=== PATIENT | male | born 1945 | race American Indian/Alaskan Native ===

== ENCOUNTER 2021-02-28 14:16 | Observation (INO) | payer MEDICARE ==
[2021-02-28 16:01] LABS: Basophils % (Auto) 0.5 % (0.0-1.8); Hematocrit 49.1 % (35.5-45.6); Hemoglobin 16.3 gm/dl (11.8-15.2); Lymphocytes # (Auto) 1.1 K/mm3 (1.2-5.4); Lymphocytes % (Auto) 18.6 % (13.4-35.0); Mean Corpuscular HGB Conc 33 % (32-34); Mean Corpuscular Volume 95 fl (84-94); Monocytes # (Auto) 0.7 K/mm3 (0.0-0.8); Monocytes % (Auto) 12.2 % (0.0-7.3); Platelet Count 179 K/mm3 (140-440); Red Blood Count 5.17 M/mm3 (3.65-5.03); Red Cell Distribution Width 12.2 % (13.2-15.2)
[2021-02-28 16:18] LABS: Alanine Aminotransferase 40 units/L (7-56); Albumin 3.6 g/dL (3.9-5); BUN/Creatinine Ratio 19; Blood Urea Nitrogen 32 mg/dL (9-20); Calcium 8.9 mg/dL (8.4-10.2); Hemolysis Index 13
[2021-02-28 16:28] LABS: INR 0.93 (0.87-1.13)
[2021-02-28 16:29] LABS: Partial Thromboplastin Time 27.1 Sec. (24.2-36.6)
[2021-02-28 16:31] LABS: Bilirubin,Urine NEG (Negative); Blood,Urine MOD (Negative); Color,Urine Yellow (Yellow); Hyaline Casts,Urine 2 /LPF; Urobilinogen,Urine < 2.0 mg/dL (<2.0)
[2021-02-28 16:34] LABS: Protein,Urine >500 mg/dL (Negative)
[2021-02-28] MEDS ORDERED: SODIUM CHLORIDE 0.9% 1000 ML 1,000 ML IV ONE ×2 (16:52→21:25)
--- NOTE | 2021-02-28 17:04 | Emergency Department Report ---
ED General Adult HPI - General Chief complaint: GI Bleed Stated complaint: DIZZINESS Source: patient Mode of arrival: Ambulatory Limitations: No Limitations - History of Present Illness Initial comments: Patient is a 76-year-old male with past medical history notable for coronary artery disease with stent placement, elevated cholesterol levels, hypertension, diabetes. He is here with complaint of several days of body aches poor p.o. intake watery diarrhea. On today he noticed bright red blood in his diarrhea and stools around 10 AM. He states he has felt dizzy and weak he notes that he has not eaten in or taken insulin given his symptoms. He denies any fevers chills he denies any sick contacts with similar symptoms he denies any chest pain or shortness of breath. He states that he has not been vaccinated for COVID-19. Severity scale (0 -10): 2 - Related Data Home Medications Medication Instructions Recorded Confirmed Last Taken Aspirin [Baby Aspirin] 81 mg PO DAILY 11/27/12 11/27/12 11/25/12 Hydrochlorothiazide 25 mg PO DAILY 11/27/12 11/27/12 11/25/12 Nitroglycerin 0.4 mg SL PRN 11/27/12 11/27/12 11/25/12 Omeprazole 20 mg PO DAILY 11/27/12 11/27/12 11/25/12 Simvastatin 40 mg PO DAILY 11/27/12 11/27/12 11/25/12 glipiZIDE [Glipizide] 5 mg PO DAILY 11/27/12 11/27/12 11/25/12 trandolapriL [Trandolapril] 2 mg PO DAILY 11/27/12 11/27/12 11/25/12 Allergies Allergy/AdvReac Type Severity Reaction Status Date / Time No Known Allergies Allergy Unverified 11/27/12 07:13 ED Review of Systems ROS: Stated complaint: DIZZINESS Other details as noted in HPI Constitutional: denies: chills, fever Eyes: denies: eye pain ENT: denies: throat pain Respiratory: denies: cough, shortness of breath Cardiovascular: denies: chest pain Endocrine: no symptoms reported Gastrointestinal: hematochezia. denies: abdominal pain, nausea, vomiting, nikhil rrhea Genitourinary: denies: urgency, dysuria Musculoskeletal: denies: back pain Skin: denies: rash Neurological: weakness. denies: headache Psychiatric: denies: anxiety, depression Hematological/Lymphatic: denies: easy bleeding ED Past Medical Hx - Past Medical History Hx Hypertension: Yes (1987) Hx Diabetes: Yes Hx Arthritis: Yes - Surgical History Hx Coronary Stent: Yes (11/2008) - Social History Smoking Status: Former Smoker - Medications Home Medications: Home Medications Medication Instructions Recorded Confirmed Last Taken Type Aspirin [Baby Aspirin] 81 mg PO DAILY 11/27/12 11/27/12 11/25/12 History Hydrochlorothiazide 25 mg PO DAILY 11/27/12 11/27/12 11/25/12 History Nitroglycerin 0.4 mg SL PRN 11/27/12 11/27/12 11/25/12 History Omeprazole 20 mg PO DAILY 11/27/12 11/27/12 11/25/12 History Simvastatin 40 mg PO DAILY 11/27/12 11/27/12 11/25/12 History glipiZIDE [Glipizide] 5 mg PO DAILY 11/27/12 11/27/12 11/25/12 History trandolapriL [Trandolapril] 2 mg PO DAILY 11/27/12 11/27/12 11/25/12 History ED Physical Exam - General Limitations: No Limitations General appearance: alert, in no apparent distress - Head Head exam: Present: atraumatic, normocephalic - Eye Eye exam: Present: normal appearance - ENT ENT exam: Present: mucous membranes moist - Neck Neck exam: Present: normal inspection - Respiratory Respiratory exam: Present: normal lung sounds bilaterally. Absent: respiratory distress - Cardiovascular Cardiovascular Exam: Present: regular rate, normal rhythm. Absent: systolic murmur, diastolic murmur, rubs, gallop - GI/Abdominal GI/Abdominal exam: Present: soft, normal bowel sounds - Rectal Rectal exam: Present: normal inspection, normal rectal tone, heme (+) stool - Extremities Exam Extremities exam: Present: normal inspection - Back Exam Back exam: Present: normal inspection - Neurological Exam Neurological exam: Present: alert, oriented X3 - Psychiatric Psychiatric exam: Present: normal affect, normal mood - Skin Skin exam: Present: warm, dry, intact, normal color. Absent: rash ED Course Vital Signs 02/28/21 02/28/21 14:45 18:47 Temperature 99.9 F H Pulse Rate 105 H 84 Respiratory 20 21 Rate Blood Pressure 172/94 168/79 [Right] O2 Sat by Pulse 93 94 Oximetry - Reevaluation(s) Reevaluation #1: 02/28/21 17:11 Initial labs notable for mild VANESSA. IV fluids have been ordered for rehydration but pending rest of work-up patient may need admission. 02/28/21 21:26 Additional fluids are ordered. Subcu insulin is also ordered as patient's blood sugar is only gone down to 360. Have also ordered Protonix. I have also spoken with the hospitalist for admission and they will come evaluate the patient. ED Medical Decision Making - Lab Data Result diagrams: 02/28/21 15:22 02/28/21 15:22 - EKG Data -: EKG Interpreted by Me EKG shows normal: sinus rhythm Rate: normal No standard instances Voltage: C/W LVH T wave inversions noted in: I, II, aVL, v2, v4, v5, v6 - Medical Decision Making Patient is a 76-year-old male presents emergency department complaint of dizziness diarrhea and generalized weakness as well as blood in stools on today. On exam patient was initially mildly tachycardic however his vital signs have normalized since I saw him. Labs are notable for hyperglycemia, VANESSA, pseudohyponatremia. Plan to give IV fluids. Differential includes viral illness, COVID-19, considered but less likely would be a pneumonia. X-ray of the abdomen and chest have also been ordered. Critical care attestation.: If time is entered above; I have spent that time in minutes in the direct care of this critically ill patient, excluding procedure time. ED Disposition Clinical Impression: VANESSA (acute kidney injury), Dehydration, Diarrhea Disposition: ADMITTED INPATIENT Is pt being admited?: Yes Does the pt Need Aspirin: No Condition: Stable Referrals: PRIMARY CARE, [Primary Care Provider] - 3-5 Days Forms: Accompanied Note
--- NOTE | 2021-02-28 18:29 | XRay Report ---
ABDOMEN 3 VIEW(S) INDICATION / CLINICAL INFORMATION: Blood in the stool. Mild hypoxia. COMPARISON: None available. FINDINGS: TUBES / LINES: None. BOWEL GAS PATTERN: There is no evidence of bowel obstruction or mass effect. FREE AIR / EXTRALUMINAL GAS: None seen. ADDITIONAL FINDINGS: No significant additional findings. CHEST: The heart size and pulmonary vasculature are normal. The lungs are clear. IMPRESSION: No acute abnormality is identified. Signer Name: Yevgeniy Edmond MD Signed: 02/28/2021 6:25 PM Workstation Name: [id number]
[2021-02-28] MEDS ORDERED: INSULIN REGULAR, HUMAN 100 UNITS/1 ML SUB-Q ONE (21:25)
[2021-02-28] MEDS ORDERED: PANTOPRAZOLE 40 MG INJ IV ONE (21:25)
[2021-02-28] MEDS ORDERED: ALBUTEROL 2.5 MG/3 ML NEBU IH PRN (22:25)
[2021-02-28] MEDS ORDERED: ACETAMINOPHEN 325 MG TAB PO PRN (22:25)
[2021-02-28] MEDS ORDERED: ONDANSETRON 4 MG/2 ML INJ IV PRN (22:25)
[2021-02-28] MEDS ORDERED: HYDROmorphone 1 MG/1 ML INJ IV PRN (22:25)
[2021-02-28] MEDS ORDERED: MORPHINE 2 MG/1 ML INJ IV PRN (22:25)
[2021-02-28] MEDS ORDERED: DEXTROSE 50% IN WATER (25GM) 50 ML SYRINGE IV PRN (22:27)
[2021-02-28] MEDS ORDERED: NITROGLYCERIN SL SCH (22:30)
[2021-02-28] MEDS ORDERED: SODIUM CHLORIDE 0.9% 1000 ML 1,000 ML IV SCH (22:30)
--- NOTE | 2021-02-28 22:33 | History and Physical Report ---
History of Present Illness Date of examination: 02/28/21 Date of admission: 02/28/21 21:27 Chief complaint: GI bleeding History of present illness: 76-year-old male with past medical history notable for coronary artery disease with stent placement, elevated cholesterol levels, hypertension, diabetes. He is here with complaint of several days of body aches poor p.o. intake watery diarrhea. On today he noticed bright red blood in his diarrhea and stools around 10 AM. He states he has felt dizzy and weak he notes that he has not eaten in or taken insulin given his symptoms. He denies any fevers chills he denies any sick contacts with similar symptoms he denies any chest pain or shortness of breath. He states that he has not been vaccinated for COVID-19. In the emergency room patient is found to have a hemoglobin of 16.3 and hematocrit 49.1 also patient BUN is 32 creatinine 1.7 and glucose 364 so going to admit the patient we will put the patient on IV fluid, Protonix and consult GI for evaluation Past History Past Medical History: arthritis, diabetes, hypertension Medications and Allergies Allergies Allergy/AdvReac Type Severity Reaction Status Date / Time No Known Allergies Allergy Unverified 11/27/12 07:13 Home Medications Medication Instructions Recorded Confirmed Last Taken Type Aspirin [Baby Aspirin] 81 mg PO DAILY 11/27/12 11/27/12 11/25/12 History Hydrochlorothiazide 25 mg PO DAILY 11/27/12 11/27/12 11/25/12 History Nitroglycerin 0.4 mg SL PRN 11/27/12 11/27/12 11/25/12 History Omeprazole 20 mg PO DAILY 11/27/12 11/27/12 11/25/12 History Simvastatin 40 mg PO DAILY 11/27/12 11/27/12 11/25/12 History glipiZIDE [Glipizide] 5 mg PO DAILY 11/27/12 11/27/12 11/25/12 History trandolapriL [Trandolapril] 2 mg PO DAILY 11/27/12 11/27/12 11/25/12 History Active Meds: Active Medications Sodium Chloride (Nacl 0.9% 1000 Ml) 1,000 mls @ 125 mls/hr IV ONCE ONE Stop: 03/01/21 05:24 Last Admin: 02/28/21 22:05 Dose: 125 mls/hr Documented by: Review of Systems All systems: negative Constitutional: weakness, other (Dizziness) Gastrointestinal: hematochezia Exam - Constitutional Vitals: Temp Pulse Resp BP Pulse Ox 99.9 F H 84 21 168/79 94 02/28/21 14:45 02/28/21 18:47 02/28/21 18:47 02/28/21 18:47 02/28/21 18:47 General appearance: Present: no acute distress, well-nourished - EENT Eyes: Present: PERRL ENT: hearing intact, clear oral mucosa - Neck Neck: Present: supple, normal ROM - Respiratory Respiratory effort: normal Respiratory: bilateral: CTA - Cardiovascular Heart Sounds: Present: S1 & S2. Absent: rub, click - Extremities Extremities: pulses symmetrical, No edema Peripheral Pulses: within normal limits - Abdominal General gastrointestinal: Present: soft, non-tender, non-distended, normal bowel sounds Male genitourinary: Present: normal - Integumentary Integumentary: Present: clear, warm, dry - Musculoskeletal Musculoskeletal: gait normal, strength equal bilaterally - Psychiatric Psychiatric: appropriate mood/affect, intact judgment & insight - Neurologic Neurologic: CNII-XII intact, moves all extremities HEART Score - HEART Score Troponin: Troponin T < 0.010 ng/mL (0.00-0.029) 02/28/21 17:21 Results - Labs CBC & Chem 7: 02/28/21 15:22 02/28/21 15:22 Labs: Laboratory Last Values WBC 5.7 K/mm3 (4.5-11.0) 02/28/21 15:22 RBC 5.17 M/mm3 (3.65-5.03) H 02/28/21 15:22 Hgb 16.3 gm/dl (11.8-15.2) H 02/28/21 15:22 Hct 49.1 % (35.5-45.6) H 02/28/21 15:22 MCV 95 fl (84-94) H 02/28/21 15:22 MCH 32 pg (28-32) 02/28/21 15:22 MCHC 33 % (32-34) 02/28/21 15:22 RDW 12.2 % (13.2-15.2) L 02/28/21 15:22 Plt Count 179 K/mm3 (140-440) 02/28/21 15:22 Lymph % (Auto) 18.6 % (13.4-35.0) 02/28/21 15:22 [place] % (Auto) 12.2 % (0.0-7.3) H 02/28/21 15:22 Eos % (Auto) 0.0 % (0.0-4.3) 02/28/21 15:22 Baso % (Auto) 0.5 % (0.0-1.8) 02/28/21 15:22 Lymph # (Auto) 1.1 K/mm3 (1.2-5.4) L 02/28/21 15:22 [place] # (Auto) 0.7 K/mm3 (0.0-0.8) 02/28/21 15:22 Eos # (Auto) 0.0 K/mm3 (0.0-0.4) 02/28/21 15: Baso # (Auto) 0.0 K/mm3 (0.0-0.1) 02/28/21 15:22 Seg Neutrophils % 68.7 % (40.0-70.0) 02/28/21 15:22 Seg Neutrophils # 3.9 K/mm3 (1.8-7.7) 02/28/21 15:22 PT 13.5 Sec. (12.2-14.9) 02/28/21 15:22 INR 0.93 (0.87-1.13) 02/28/21 15:22 APTT 27.1 Sec. (24.2-36.6) 02/28/21 15:22 Sodium 128 mmol/L (137-145) L 02/28/21 15:22 Potassium 4.1 mmol/L (3.6-5.0) 02/28/21 15:22 Chloride 87.0 mmol/L (98-107) L 02/28/21 15:22 Carbon Dioxide 28 mmol/L (22-30) 02/28/21 15:22 Anion Gap 17 mmol/L 02/28/21 15:22 BUN 32 mg/dL (9-20) H 02/28/21 15:22 Creatinine 1.7 mg/dL (0.8-1.3) H 02/28/21 15:22 Estimated GFR 48 ml/min 02/28/21 15:22 BUN/Creatinine Ratio 19 % 02/28/21 15:22 Glucose 387 mg/dL (75-100) H 02/28/21 15:22 POC Glucose 364 mg/dL (70-105) H 02/28/21 21:06 Calcium 8.9 mg/dL (8.4-10.2) 02/28/21 15:22 Total Bilirubin 0.30 mg/dL (0.1-1.2) 02/28/21 15:22 AST 31 units/L (5-40) 02/28/21 15:22 ALT 40 units/L (7-56) 02/28/21 15:22 Alkaline Phosphatase 71 units/L (35-129) 02/28/21 15:22 Troponin T < 0.010 ng/mL (0.00-0.029) 02/28/21 17:21 Total Protein 7.5 g/dL (6.3-8.2) 02/28/21 15:22 Albumin 3.6 g/dL (3.9-5) L 02/28/21 15:22 Albumin/Globulin Ratio 0.9 % 02/28/21 15:22 Urine Color Yellow (Yellow) 02/28/21 Unknown Urine Turbidity Clear (Clear) 02/28/21 Unknown Urine pH 5.0 (5.0-7.0) 02/28/21 Unknown Ur Specific [place] 1.023 (1.003-1.030) 02/28/21 Unknown Urine Protein >500 mg/dL (Negative) 02/28/21 Unknown Urine Glucose (UA) >=500 mg/dL (Negative) 02/28/21 Unknown Urine Ketones Tr mg/dL (Negative) 02/28/21 Unknown Urine Blood Mod (Negative) 02/28/21 Unknown Urine Nitrite Neg (Negative) 02/28/21 Unknown Urine Bilirubin Neg (Negative) 02/28/21 Unknown Urine Urobilinogen < 2.0 mg/dL (<2.0) 02/28/21 Unknown Ur Leukocyte Esterase Neg (Negative) 02/28/21 Unknown Urine WBC (Auto) 1.0 /HPF (0.0-6.0) 02/28/21 Unknown Urine RBC (Auto) 1.0 /HPF (0.0-6.0) 02/28/21 Unknown Hyaline Casts 2 /LPF 02/28/21 Unknown Blood Type B POSITIVE 02/28/21 15:24 Antibody Screen Negative 02/28/21 15:24 - Imaging and Cardiology Chest x-ray: report reviewed Assessment and Plan VTE prophylaxis?: Mechanical Plan of care discussed with patient/family: Yes - Patient Problems (1) GI bleeding Current Visit: Yes Status: Acute Plan to address problem: Admit the patient to med floor. NPO. Normal saline at the rate of 100 cc/h. Protonix 40 mg IV every 12 hours. Will consult GI for evaluation. Recheck CBC in the morning (2) Diabetes Current Visit: Yes Status: Acute Plan to address problem: Humalog sliding scale Accu-Chek every 6 hours with moderate dose coverage. D iabetic education (3) Hypertension Current Visit: Yes Status: Acute Plan to address problem: Stable. We will continue the home medication trend trandolapril 2 mg p.o. daily (4) VANESSA (acute kidney injury) Current Visit: Yes Status: Acute Plan to address problem: Avoid nephrotoxic drug. Renally dose medication. Normal saline at the rate of 100 cc/h. Recheck BMP in the morning (5) Dehydration Current Visit: Yes Status: Acute Plan to address problem: . Normal saline at the rate of 100 cc/h. Recheck BMP in the morning (6) DVT prophylaxis Current Visit: Yes Status: Acute Plan to address problem: SCD for DVT prophylaxis. Protonix 40 mg IV every 12 hours for GI prophylaxis. Patient is a full code
[2021-02-28] MEDS ORDERED: NITROGLYCERIN 0.4 MG TAB SUBL SL PRN (23:00)
[2021-03-01 06:17] LABS: Basophils % (Auto) 0.6 % (0.0-1.8); Hematocrit 45.7 % (35.5-45.6); Hemoglobin 15.1 gm/dl (11.8-15.2); Lymphocytes # (Auto) 1.4 K/mm3 (1.2-5.4); Lymphocytes % (Auto) 23.2 % (13.4-35.0); Mean Corpuscular HGB Conc 33 % (32-34); Mean Corpuscular Volume 96 fl (84-94); Monocytes # (Auto) 0.6 K/mm3 (0.0-0.8); Monocytes % (Auto) 10.5 % (0.0-7.3); Red Blood Count 4.78 M/mm3 (3.65-5.03); Red Cell Distribution Width 12.2 % (13.2-15.2)
[2021-03-01 06:29] LABS: BUN/Creatinine Ratio 18; Blood Urea Nitrogen 24 mg/dL (9-20); Calcium 8.5 mg/dL (8.4-10.2); Hemolysis Index 77
[2021-03-01 06:32] LABS: Platelet Count 171 K/mm3 (140-440)
[2021-03-01] MEDS: INSULIN LISPRO 100 UNIT/ML SUB-Q SCH ×4 (08:08→18:45)
[2021-03-01] MEDS ORDERED: NON-FORMULARY EACH (Simvastatin [Simvastatin] 40 MG Tablet) PO SCH (10:00)
[2021-03-01] MEDS ORDERED: TRANDOLAPRIL 2 MG PO SCH (10:00)
[2021-03-01] MEDS: hydroCHLOROthiazide 25 MG TAB PO SCH (10:07)
[2021-03-01] MEDS: LISINOPRIL 10 MG TAB PO SCH (10:07)
[2021-03-01] MEDS: PANTOPRAZOLE 40 MG INJ IV SCH ×2 (10:08→22:57)
--- NOTE | 2021-03-01 11:53 | Gastroenterology Consultation ---
History of Present Illness - Reason for Consult Consult date: 03/01/21 hematochezia Requesting physician: HARESH AKBAR - History of Present Illness The patient is a 76 yo aam with h/o cad and diabetes who presented with generalized weakness/dehydration and episode of hematochezia. Pt reports having diarrhea for a few days and had an episode of bloody stools 2-3 days ago. No further episodes since then or while in ER. He was found to have VANESSA and high glucose on admission. H/H is normal. He believes he had colonoscopy many years ago but unable to provide details on findings. Denies abd pain or weight loss. he feels hungry and requesting to eat. Past History Past Medical History: arthritis, diabetes, hypertension Medications and Allergies Allergies Allergy/AdvReac Type Severity Reaction Status Date / Time No Known Allergies Allergy Unverified 11/27/12 07:13 Home Medications Medication Instructions Recorded Confirmed Last Taken Type Aspirin [Baby Aspirin] 81 mg PO DAILY 11/27/12 11/27/12 11/25/12 History Hydrochlorothiazide 25 mg PO DAILY 11/27/12 11/27/12 11/25/12 History Nitroglycerin 0.4 mg SL PRN 11/27/12 11/27/12 11/25/12 History Omeprazole 20 mg PO DAILY 11/27/12 11/27/12 11/25/12 History Simvastatin 40 mg PO DAILY 11/27/12 11/27/12 11/25/12 History glipiZIDE [Glipizide] 5 mg PO DAILY 11/27/12 11/27/12 11/25/12 History trandolapriL [Trandolapril] 2 mg PO DAILY 11/27/12 11/27/12 11/25/12 History Active Meds: Active Medications Acetaminophen (Acetaminophen 325 Mg Tab) 650 mg PO Q4H PRN PRN Reason: Pain MILD(1-3)/Fever >100.5/PATRICK Albuterol (Albuterol 2.5 Mg/3 Ml Nebu) 2.5 mg IH Q4HRT PRN PRN Reason: Shortness Of Breath Dextrose (Dextrose 50% In Water (25gm) 50 Ml Syringe) 50 ml IV Q30MIN PRN; Protocol PRN Reason: Hypoglycemia Hydrochlorothiazide (Hydrochlorothiazide 25 Mg Tab) 25 mg PO DAILY ZACKERY Last Admin: 03/01/21 10:07 Dose: 25 mg Documented by: Hydromorphone HCl (Hydromorphone 1 Mg/1 Ml Inj) 0.5 mg IV Q3H PRN PRN Reason: Pain , Severe (7-10) Sodium Chloride (Nacl 0.9% 1000 Ml) 1,000 mls @ 100 mls/hr IV DIRECT [facility] Insulin Human Lispro (Insulin Lispro 100 Unit/Ml) 0 unit SUB-Q Q6HR [facility]; Protocol Last Admin: 03/01/21 09:25 Dose: Not Given Documented by: Lisinopril (Lisinopril 10 Mg Tab) 10 mg PO QDAY [facility] Last Admin: 03/01/21 10:07 Dose: 10 mg Documented by: Morphine Sulfate (Morphine 2 Mg/1 Ml Inj) 2 mg IV Q4H PRN PRN Reason: Pain, Moderate (4-6) Nitroglycerin (Nitroglycerin 0.4 Mg Tab Subl) 0.4 mg SL .Q5MIN PRN PRN Reason: Chest Pain Ondansetron HCl (Ondansetron 4 Mg/2 Ml Inj) 4 mg IV Q8H PRN PRN Reason: Nausea And Vomiting Pantoprazole Sodium (Pantoprazole 40 Mg Inj) 40 mg IV BID [facility] Last Admin: 03/01/21 10:08 Dose: 40 mg Documented by: Pravastatin Sodium (Pravastatin 80 Mg Tab) 80 mg PO QHS [facility] Sodium Chloride (Sodium Chloride 0.9% 10 Ml Flush Syringe) 10 ml IV BID [facility] Last Admin: 03/01/21 10:11 Dose: 10 ml Documented by: Sodium Chloride (Sodium Chloride 0.9% 10 Ml Flush Syringe) 10 ml IV PRN PRN PRN Reason: LINE FLUSH Reviewed/updated patient's home and current medications Review of Systems - Review of Systems All systems: negative (per HPI) Exam - Constitutional Vital Signs: Temp Pulse Resp BP Pulse Ox 99.9 F H 84 21 168/79 94 02/28/21 14:45 02/28/21 18:47 02/28/21 18:47 02/28/21 18:47 02/28/21 18:47 General appearance: no acute distress - EENT Eyes: PERRL, EOM intact - Respiratory Respiratory effort: normal Respiratory: bilateral: CTA - Cardiovascular Rhythm: regular Heart Sounds: Present: S1 & S2 - Gastrointestinal General gastrointestinal: Present: soft, non-tender, non-distended - Integumentary Integumentary: Present: clear, warm - Neurologic Neurological: alert and oriented x3 - Psychiatric Psychiatric: appropriate mood/affect - Labs CBC & Chem 7: 03/01/21 05:47 03/01/21 05:47 Lab Results: Laboratory Results - last 24 hr 02/28/21 02/28/21 02/28/21 15:22 15:22 15:22 WBC 5.7 RBC 5.17 H Hgb 16.3 H Hct 49.1 H MCV 95 H MCH 32 MCHC 33 RDW 12.2 L Plt Count 179 Lymph % (Auto) 18.6 [place] % (Auto) 12.2 H Eos % (Auto) 0.0 Baso % (Auto) 0.5 Lymph # (Auto) 1.1 L [place] # (Auto) 0.7 Eos # (Auto) 0.0 Baso # (Auto) 0.0 Seg Neutrophils % 68.7 Seg Neutrophils # 3.9 PT 13.5 INR 0.93 APTT 27.1 Sodium 128 L Potassium 4.1 Chloride 87.0 L Carbon Dioxide 28 Anion Gap 17 BUN 32 H Creatinine 1.7 H Estimated GFR 48 BUN/Creatinine Ratio 19 Glucose 387 H POC Glucose Calcium 8.9 Total Bilirubin 0.30 AST 31 ALT 40 Alkaline Phosphatase 71 Troponin T < 0.010 Total Protein 7.5 Albumin 3.6 L Albumin/Globulin Ratio 0.9 Urine Color Urine Turbidity Urine pH Ur Specific [place] Urine Protein Urine Glucose (UA) Urine Ketones Urine Blood Urine Nitrite Urine Bilirubin Urine Urobilinogen Ur Leukocyte Esterase Urine WBC (Auto) Urine RBC (Auto) Hyaline Casts Blood Type Antibody Screen 02/28/21 02/28/21 02/28/21 15:24 17:21 21:06 WBC RBC Hgb Hct MCV MCH MCHC RDW Plt Count Lymph % (Auto) [place] % (Auto) Eos % (Auto) Baso % (Auto) Lymph # (Auto) [place] # (Auto) Eos # (Auto) Baso # (Auto) Seg Neutrophils % Seg Neutrophils # PT INR APTT Sodium Potassium Chloride Carbon Dioxide Anion Gap BUN Creatinine Estimated GFR BUN/Creatinine Ratio Glucose POC Glucose 364 H Calcium Total Bilirubin AST ALT Alkaline Phosphatase Troponin T < 0.010 Total Protein Albumin Albumin/Globulin Ratio Urine Color Urine Turbidity Urine pH Ur Specific [place] Urine Protein Urine Glucose (UA) Urine Ketones Urine Blood Urine Nitrite Urine Bilirubin Urine Urobilinogen Ur Leukocyte Esterase Urine WBC (Auto) Urine RBC (Auto) Hyaline Casts Blood Type B POSITIVE Antibody Screen Negative 02/28/21 03/01/21 03/01/21 Unknown 05:47 05:47 WBC 5.9 RBC 4.78 Hgb 15.1 Hct 45.7 H MCV 96 H MCH 32 MCHC 33 RDW 12.2 L Plt Count 171 Lymph % (Auto) 23.2 [place] % (Auto) 10.5 H Eos % (Auto) 0.0 Baso % (Auto) 0.6 Lymph # (Auto) 1.4 [place] # (Auto) 0.6 Eos # (Auto) 0.0 Baso # (Auto) 0.0 Seg Neutrophils % 65.7 Seg Neutrophils # 3.9 PT INR APTT Sodium 135 L D Potassium 4.4 Chloride 96.9 L Carbon Dioxide 26 Anion Gap 17 BUN 24 H Creatinine 1.3 Estimated GFR > 60 BUN/Creatinine Ratio 18 Glucose 243 H POC Glucose Calcium 8.5 Total Bilirubin AST ALT Alkaline Phosphatase Troponin T Total Protein Albumin Albumin/Globulin Ratio Urine Color Yellow Urine Turbidity Clear Urine pH 5.0 Ur Specific [place] 1.023 Urine Protein >500 Urine Glucose (UA) >=500 Urine Ketones Tr Urine Blood Mod Urine Nitrite Neg Urine Bilirubin Neg Urine Urobilinogen < 2.0 Ur Leukocyte Esterase Neg Urine WBC (Auto) 1.0 Urine RBC (Auto) 1.0 Hyaline Casts 2 Blood Type Antibody Screen 03/01/21 03/01/21 07:25 11:35 WBC RBC Hgb Hct MCV MCH MCHC RDW Plt Count Lymph % (Auto) [place] % (Auto) Eos % (Auto) Baso % (Auto) Lymph # (Auto) [place] # (Auto) Eos # (Auto) Baso # (Auto) Seg Neutrophils % Seg Neutrophils # PT INR APTT Sodium Potassium Chloride Carbon Dioxide Anion Gap BUN Creatinine Estimated GFR BUN/Creatinine Ratio Glucose POC Glucose 206 H 200 H Calcium Total Bilirubin AST ALT Alkaline Phosphatase Troponin T Total Protein Albumin Albumin/Globulin Ratio Urine Color Urine Turbidity Urine pH Ur Specific [place] Urine Protein Urine Glucose (UA) Urine Ketones Urine Blood Urine Nitrite Urine Bilirubin Urine Urobilinogen Ur Leukocyte Esterase Urine WBC (Auto) Urine RBC (Auto) Hyaline Casts Blood Type Antibody Screen Assessment and Plan 1. hematochezia - episode x 1 prior to arrival, normal H/H, and no episodes since admission. will monitor/manage conservatively from gi stand point for time being. needs eventual colonoscopy (can be done as outpatient if labs remain normal with no further bleeding). will f/u tomorrow to decide appropriate timing 2. VANESSA - further management per primary 3. Hyperglycemia - management per primary okay for clears from gi stand point.
--- NOTE | 2021-03-01 16:38 | Progress Note ---
Assessment and Plan - Patient Problems (1) GI bleeding Current Visit: Yes Status: Acute Plan to address problem: No further GI bleed GI consult appreciated No colonoscopy at this point of time (2) Diabetes Current Visit: Yes Status: Acute Plan to address problem: Coverage for now (3) Hypertension Current Visit: Yes Status: Acute Plan to address problem: Stable. We will continue the home medication trend trandolapril 2 mg p.o. daily (4) VANESSA (acute kidney injury) Current Visit: Yes Status: Acute Plan to address problem: Creatinine is normalized (5) Dehydration Current Visit: Yes Status: Acute Plan to address problem: . Normal saline at the rate of 100 cc/h. Recheck BMP in the morning (6) DVT prophylaxis Current Visit: Yes Status: Acute Plan to address problem: SCD for DVT prophylaxis. Protonix 40 mg IV every 12 hours for GI prophylaxis. Patient is a full code Subjective Date of service: 03/01/21 Principal diagnosis: Lower GI bleed Interval history: 76-year-old male with past medical history notable for coronary artery disease with stent placement, elevated cholesterol levels, hypertension, diabetes. He is here with complaint of several days of body aches poor p.o. intake watery diarrhea. On today he noticed bright red blood in his diarrhea and stools around 10 AM. He states he has felt dizzy and weak he notes that he has not eaten in or taken insulin given his symptoms. He denies any fevers chills he denies any sick contacts with similar symptoms he denies any chest pain or shortness of breath. He states that he has not been vaccinated for COVID-19. In the emergency room patient is found to have a hemoglobin of 16.3 and hematocrit 49.1 also patient BUN is 32 creatinine 1.7 and glucose 364 so going to admit the patient we will put the patient on IV fluid, Protonix and consult GI for evaluation 03/01/2021 No further episodes of lower GI bleed GI consult appreciated Monitor hemoglobin and hematocrit and IV fluids for now Objective - Constitutional General appearance: Present: no acute distress, well-nourished - EENT Eyes: PERRL, EOM intact ENT: hearing intact, clear oral mucosa Ears: bilateral: normal - Neck Neck: supple, normal ROM - Respiratory Respiratory effort: normal Respiratory: bilateral: CTA - Breasts Breasts: normal - Cardiovascular Heart rate: 78 Rhythm: regular Heart Sounds: Present: S1 & S2. Absent: gallop, rub Extremities: pulses intact, No edema, normal color, Full ROM - Gastrointestinal General gastrointestinal: Present: soft, non-tender, non-distended, normal bowel sounds - Genitourinary Male genitourinary: normal - Integumentary Integumentary: clear, warm, dry - Musculoskeletal Musculoskeletal: 1, strength equal bilaterally - Neurologic Neurologic: moves all extremities - Psychiatric Psychiatric: memory intact, appropriate mood/affect, intact judgment & insight - Labs CBC & Chem 7: 03/01/21 05:47 03/01/21 05:47 Labs: Abnormal lab results 02/28/21 03/01/21 03/01/21 Range/Units 21:06 05:47 05:47 Hct 45.7 H (35.5-45.6) % MCV 96 H (84-94) fl RDW 12.2 L (13.2-15.2) % [place] % (Auto) 10.5 H (0.0-7.3) % Sodium 135 L D (137-145) mmol/L Chloride 96.9 L (98-107) mmol/L BUN 24 H (9-20) mg/dL Glucose 243 H (75-100) mg/dL POC Glucose 364 H (70-105) mg/dL 03/01/21 03/01/21 Range/Units 07:25 11:35 Hct (35.5-45.6) % MCV (84-94) fl RDW (13.2-15.2) % [place] % (Auto) (0.0-7.3) % Sodium (137-145) mmol/L Chloride (98-107) mmol/L BUN (9-20) mg/dL Glucose (75-100) mg/dL POC Glucose 206 H 200 H (70-105) mg/dL HEART Score - HEART Score Troponin: Troponin T < 0.010 ng/mL (0.00-0.029) 02/28/21 17:21
[2021-03-01] MEDS ORDERED: PRAVASTATIN 80 MG TAB PO SCH (22:00)
[2021-03-02 04:22] VITALS: BP 115/62
[2021-03-02] MEDS: INSULIN LISPRO 100 UNIT/ML SUB-Q SCH ×2 (09:06→10:36)
[2021-03-02] MEDS: hydroCHLOROthiazide 25 MG TAB PO SCH (10:35)
[2021-03-02] MEDS: PANTOPRAZOLE 40 MG INJ IV SCH (10:35)
[2021-03-02] MEDS: LISINOPRIL 10 MG TAB PO SCH (10:35)
--- NOTE | 2021-03-02 12:38 | Discharge Summary ---
Providers - Providers Date of Admission: 02/28/21 21:27 Attending physician: ELLEN ANAYA MD 02/28/21 22:25 Consult to Physician [CONS] Routine Comment: Consulting Provider: GEOVANY PIERRE Physician Instructions: Reason For Exam: gib 02/28/21 22:27 Consult to Dietitian/Nutrition [CONS] Routine Physician Instructions: Reason For Exam: Reason for Consult: Diet education Primary care physician: RECREATION PROFESSOR Hospitalization Reason for admission: GI Condition: Stable Hospital course: (1) GI bleeding Current Visit: Yes Status: Acute Plan to address problem: No further GI bleed GI consult appreciated No colonoscopy at this point of time (2) Diabetes Current Visit: Yes Status: Acute Plan to address problem: Coverage for now (3) Hypertension Current Visit: Yes Status: Acute Plan to address problem: Stable. We will continue the home medication trend trandolapril 2 mg p.o. daily (4) VANESSA (acute kidney injury) Current Visit: Yes Status: Acute Plan to address problem: Creatinine is normalized (5) Dehydration Current Visit: Yes Status: Acute Plan to address problem: . Normal saline at the rate of 100 cc/h. Recheck BMP in the morning (6) DVT prophylaxis Current Visit: Yes Status: Acute Plan to address problem: SCD for DVT prophylaxis. Protonix 40 mg IV every 12 hours for GI prophylaxis. Patient is a full code Subjective Date of service: 03/01/21 Principal diagnosis: Lower GI bleed Interval history: 76-year-old male with past medical history notable for coronary artery disease with stent placement, elevated cholesterol levels, hypertension, diabetes. He is here with complaint of several days of body aches poor p.o. intake watery diarrhea. On today he noticed bright red blood in his diarrhea and stools around 10 AM. He states he has felt dizzy and weak he notes that he has not eaten in or taken insulin given his symptoms. He denies any fevers chills he denies any sick contacts with similar symptoms he denies any chest pain or shortness of breath. He states that he has not been vaccinated for COVID-19. In the emergency room patient is found to have a hemoglobin of 16.3 and hematocrit 49.1 also patient BUN is 32 creatinine 1.7 and glucose 364 so going to admit the patient we will put the patient on IV fluid, Protonix and consult GI for evaluation 03/01/2021 No further episodes of lower GI bleed GI consult appreciated Monitor hemoglobin and hematocrit and IV fluids for now 03/02: Patient seen and examined clinically stable at this time no further bleed noted. Hemoglobin is stable as of yesterday. Acute kidney injury has improved. Will follow with GI outpatient conservative management recommended possible endoscopy Disposition: HOME / SELF CARE / HOMELESS Final Discharge Diagnosis (Prints w/discharge instructions): GI bleed Time spent for discharge: 35 mins Core Measure Documentation - Palliative Care Palliative Care/ Comfort Measures: Not Applicable - Core Measures Any of the following diagnoses?: none Exam - Physical Exam Narrative exam: - Constitutional General appearance: Present: no acute distress, well-nourished - EENT Eyes: PERRL, EOM intact ENT: hearing intact, clear oral mucosa Ears: bilateral: normal - Neck Neck: supple, normal ROM - Respiratory Respiratory effort: normal Respiratory: bilateral: CTA - Breasts Breasts: normal - Cardiovascular Heart rate: 78 Rhythm: regular Heart Sounds: Present: S1 & S2. Absent: gallop, rub Extremities: pulses intact, No edema, normal color, Full ROM - Gastrointestinal General gastrointestinal: Present: soft, non-tender, non-distended, normal bowel sounds - Genitourinary Male genitourinary: normal - Integumentary Integumentary: clear, warm, dry - Musculoskeletal Musculoskeletal: 1, strength equal bilaterally - Neurologic Neurologic: moves all extremities - Psychiatric Psychiatric: memory intact, appropriate mood/affect, intact judgment & insight - Constitutional Vitals: Temp Pulse Resp BP Pulse Ox 98.6 F 76 18 115/62 96 03/02/21 03:09 03/02/21 03:09 03/02/21 06:47 03/02/21 03:09 03/02/21 09:36 Plan Activity: advance as tolerated, up only with assistance Diet: low fat Special Instructions: record daily weights Care Plan Goals: Avoid NSAIDs Follow up with: PRIMARY MD ANAHI [Primary Care Provider] - 3-5 Days HIGINIO FOSS MD [Staff Physician] - 7 Days Forms: Accompanied Note Prescriptions: Pantoprazole [Protonix TAB] 40 mg PO QDAY #30 tablet
--- NOTE | 2021-03-02 13:33 | Gastroenterology Progress Note ---
Assessment and Plan hematochezia - episode x 1 prior to arrival. no further episodes since admission and H/H remains normal. noted plans for discharge today. pt needs to f/u in gi clinic in a few weeks after discharge to arrange outpatient colonoscopy. will sign off, please call as needed. Subjective Date of service: 03/02/21 Principal diagnosis: Lower GI bleed Interval history: pt feels well, no gi complaints or further bleeding since since admission. Objective - Constitutional Vitals: Temp Pulse Resp BP Pulse Ox 98.6 F 76 18 115/62 96 03/02/21 03:09 03/02/21 03:09 03/02/21 06:47 03/02/21 03:09 03/02/21 09:36 General appearance: no acute distress - Respiratory Respiratory effort: normal Respiratory: bilateral: CTA - Cardiovascular Rhythm: regular Heart Sounds: Present: S1 & S2 - Gastrointestinal General gastrointestinal: Present: soft, non-tender, non-distended - Labs CBC & Chem 7: 03/01/21 05:47 03/01/21 05:47 Labs: Laboratory Results - last 24 hr 03/02/21 03/02/21 07:56 11:30 POC Glucose 235 H 225 H
--- NOTE | 2021-03-04 10:37 | Electrocardiograph Report ---
[facility] [place] [facility] Test Date: 2021-02-28 Test Time: 15:59:30 Pat Name: ANTHONY DOAN Department: Room: A465 Gender: M Museum Attendant: HERON : 1945 Requested By: MARLA FISCHER Order Number: [id number] Reading MD: Seamus Ulloa Measurements Intervals [place] Rate: 78 P: 36 MA: 194 QRS: -38 QRSD: 99 T: 169 QT: 405 QTc: 462 Interpretive Statements Sinus rhythm LVH w/ repol abnormalities, possible ischemia No previous ECG available for comparison, correlate clinically. Electronically Signed On 03-04-2021 10:36:22 EST by Seamus Ulloa
== END 2021-03-02 18:23 | disposition home or self-care (01) ==
LOC: ED 14:16 → 3A 21:27 → 4A 03-01 22:37
PROVIDERS: ADMIT Hospitalist; ATTEND Internal Medicine
DX: K92.2 Gastrointestinal hemorrhage, unspecified (principal); N17.9 Acute kidney failure, unspecified; I10 Essential (primary) hypertension; E11.9 Type 2 diabetes mellitus without complications; E86.0 Dehydration; M19.90 Unspecified osteoarthritis, unspecified site; R53.1 Weakness; R42 Dizziness and giddiness; Z79.82 Long term (current) use of aspirin; Z95.1 Presence of aortocoronary bypass graft; Z87.891 Personal history of nicotine dependence
CPT/HCPCS: 36415; 74022; 80048; 80053; 81001; 82962; 84484; 85025; 85610; 85730; 86850; 86900; 86901; 93005; 96361; 96374; 96376; 99285; C9113; G0378; J7030; Q0162; Q9967; J1815